=== PATIENT | female | born 1950 | race Caucasian/White ===

== ENCOUNTER 2017-03-04 09:45 | Outpatient (CLI) | payer MEDICARE, OTHER ==
[~2017-03-04 09:45] MED LIST: ATOR10TA PO; BLOO-140 IN; CANA100T PO; DIPH25TA62 PO; DOCU100T9 PO; DULO30CA2 PO; FLUT10.62 IH; FLUT16SP16 BNOSTRILS; GABA-534 PO; GLIP10TA11 PO; INSU100V7 SQ; LEVO50TA8 PO; LIDO30AD10 TP; MELO-270 PO; METF500T4 PO; METO10TA3 PO; SITA50TA PO; VALS80TA2 PO
== END 2017-03-04 23:59 | disposition home or self-care (01) ==
LOC: NM 09:45
PROVIDERS: ATTEND Internal Medicine Cardiovascular Disease
DX: R07.9 Chest pain, unspecified (principal); E78.5 Hyperlipidemia, unspecified; E11.9 Type 2 diabetes mellitus without complications
CPT/HCPCS: 78452; A9502; J2785

== ENCOUNTER 2019-05-24 11:45 | Outpatient (CLI) | payer MEDICARE, OTHER ==
[~2019-05-24 11:45] MED LIST changes: +MELO-105 PO; -MELO-270 PO; +METF-440 PO; -METF500T4 PO
[2019-05-24 12:37] LABS: CALCIUM, SERUM 8.9 mg/dL (8.5-10.1); POTASSIUM 4.7 mmol/L (3.5-5.1)
[2019-05-24] MEDS ORDERED: IOHEXOL-350 100 ML VIAL IV ONE ×2 (12:49→13:30)
[2019-05-24] MEDS ORDERED: METOPROLOL TARTRATE INJ 5 MG/5 ML AMPUL ONE ×2 (12:49→13:30)
[2019-05-24] MEDS ORDERED: NITROGLYCERIN 0.4 MG/TAB BOTTLE ONE (12:49)
[2019-05-24] MEDS ORDERED: CT SWABBABLE VALVE TRANS SET 1 EA INFUS.SET MC ONE ×2 (12:50→13:30)
[2019-05-24] MEDS ORDERED: IV NS 0.9% 250 ML IV ONE ×2 (12:50→13:30)
[2019-05-24] MEDS ORDERED: IOHEXOL-300 100 ML VIAL IV ONE (14:00)
[2019-05-24] MEDS ORDERED: IV NS 0.9% 500 ML IV ONE (14:00)
[2019-05-24] MEDS ORDERED: NITROGLYCERIN 0.4 MG/TAB BOTTLE SL ONE (14:00)
[2019-05-24] MEDS ORDERED: METOPROLOL TARTRATE INJ 5 MG/5 ML AMPUL IVP ONE (14:00)
== END 2019-05-24 23:59 | disposition home or self-care (01) ==
LOC: CT 11:45
PROVIDERS: ATTEND Internal Medicine Cardiovascular Disease
DX: I25.10 Atherosclerotic heart disease of native coronary artery without angina pectoris (principal); I70.0 Atherosclerosis of aorta; I05.8 Other rheumatic mitral valve diseases; M47.814 Spondylosis without myelopathy or radiculopathy, thoracic region; M84.48XA Pathological fracture, other site, initial encounter for fracture; M79.604 Pain in right leg; M79.605 Pain in left leg; R22.43 Localized swelling, mass and lump, lower limb, bilateral; I10 Essential (primary) hypertension; E11.9 Type 2 diabetes mellitus without complications
CPT/HCPCS: 36415; 71045; 71275; 75574; 80048; 93970; J3490; J7050 ×2; Q9967 ×3

== ENCOUNTER 2019-07-24 12:10 | Outpatient (CLI) | payer MEDICARE, OTHER | END 2019-07-24 23:59 | disposition home or self-care (01) | LOC: CARD 12:10 | PROVIDERS: ATTEND Internal Medicine Cardiovascular Disease | DX: I73.89 Other specified peripheral vascular diseases (principal); I82.623 Acute embolism and thrombosis of deep veins of upper extremity, bilateral ==